=== PATIENT | female | born 1950 | race Caucasian/White ===

== ENCOUNTER 2017-11-24 07:31 | Emergency (ER) | payer MEDICARE ==
[2017-11-24 08:19] LABS: #Basophils 0.1 thou/uL (0.0-0.2); #Eosinphils 0.1 thou/uL (0.0-0.7); #Lymphocytes 1.3 thou/uL (1.20-3.40); #Monocytes 0.4 thou/uL (0.11-0.59); #Neutrophils 3.5 thou/uL (1.40-6.50); %Basophils 1.1 % (0.0-1.0); %Eosinophils 1.4 % (0.0-10.0); %Lymphocytes 23.9 % (21.0-51.0); %Monocytes 7.4 % (0.0-10.0); %Neutrophils 66.2 % (42.0-75.0); Hemoglobin 11.7 g/dL (12.0-16.0); Mean Corpuscular HGB CONC 33.2 g/dL (32.0-36.0); Mean Corpuscular Hemoglobin 32.4 pg (27.0-31.0); Mean Corpuscular Volume 97.4 fL (78.0-98.0); Mean Platelet Volume 7.1 fL (7.4-10.4); Platelet Count 190 thou/uL (130-400); RBC Distribution Width 10.9 % (11.5-14.5); Red Blood Cell (RBC) Count 3.61 mill/uL (4.20-5.40); White Blood Cell (WBC) Count 5.3 thou/uL (4.8-10.8)
[2017-11-24 08:23] LABS: Bilirubin Negative (Negative); Blood, Urine Negative (Negative); Clarity CLEAR (Clear); Glucose, Urine (Dipstick) Negative (Negative); Leukocyte Negative (Negative); Nitrite Negative (Negative); Protein, Urine (Dipstick) Negative (Neg-Trace); Specific Gravity, Urine 1.005 (1.002-1.036); pH, Urine 7.5 (5.0-9.0)
[2017-11-24 08:36] LABS: Albumin 3.4 g/dL (3.4-4.8); Alkaline Phosphatase 138 U/L (40-150); Anion Gap 13 mmol/L (10-20); BUN (Urea Nitrogen) 5 mg/dL (9.8-20.1); Bilirubin, Total 1.1 mg/dL (0.2-1.2); Calc. Creatinine Clearance 0 mL/min (70-130); Calcium 9.2 mg/dL (7.8-10.44); Carbon Dioxide 25 mmol/L (23-31); Chloride 97 mmol/L (98-107); Estimated GFR-MDRD 67; Globulin 3.2 g/dL (2.4-3.5); Glucose 96 mg/dL (80-115); Potassium 3.8 mmol/L (3.5-5.1); Protein, Total 6.6 g/dL (6.0-8.3); Sodium 131 mmol/L (136-145)
[2017-11-24 08:37] LABS: AST (SGOT) 109 U/L (5-34)
[2017-11-24 08:38] LABS: ALT (SGPT) 53 U/L (8-55)
[2017-11-24 08:47] LABS: Lipase 38 U/L (8-78)
--- NOTE | 2017-11-24 09:43 | CT ---
ABDOMEN AND PELVIC CT WITH IV CONTRAST: History: 67-year-old female with history of abdominal pain, nausea, and vomiting. FINDINGS: Visualized lung bases are unremarkable. There is some fatty change in the liver. The gallbladder, puente creas, spleen, and adrenal glands are unremarkable. No renal calculus or acute obstruction. No stephany dence of large or small bowel obstruction. Status post hysterectomy changes. No CT evidence for acute appendicitis. No abscess or abnormal fluid collection. Multilevel lumbar spine spondylosis. IMPRESSION: No significant acute process in the abdomen or pelvis. POS: [facility]
[2017-11-24] MEDS ORDERED: ISOVUE-370 76%-LOCM 1 ML ONE (13:04)
== END 2017-11-24 10:19 | disposition home or self-care (01) ==
LOC: ERS 07:31
DX: R19.7 Diarrhea, unspecified (principal); R11.2 Nausea with vomiting, unspecified; I10 Essential (primary) hypertension; E78.5 Hyperlipidemia, unspecified; D64.9 Anemia, unspecified
CPT/HCPCS: 36415; 74177; 80053; 81003; 83690; 85025; 96360; 96361

== ENCOUNTER 2018-10-25 09:54 | Emergency (ER) | payer MEDICARE ==
[2018-10-25] MEDS ORDERED: Morphine 4 MG/ML VIAL ONE (10:31)
[2018-10-25] MEDS ORDERED: Ondansetron PF 4 MG/2 ML Vial ONE (10:31)
[2018-10-25] MEDS ORDERED: Adacel (T-DAP) 0.5 ML SYRINGE ONE (10:31)
--- NOTE | 2018-10-25 11:08 | CT ---
CT BRAIN WITHOUT CONTRAST: HISTORY: Trauma, fall, unable to speak. FINDINGS: Comparison is made with the exam of 04/26/2016. Changes of chronic small-vessel ischemic disease are again seen with old lacunar infarcts in the basa l ganglia. No evidence of acute infarct, hemorrhage, midline shift, or abnormal extraaxial fluid col lection is noted. The bony calvarium is intact. The visualized paranasal sinuses and mastoid air ce lls are well aerated. IMPRESSION: No CT evidence of acute intracranial process. POS: [facility]
--- NOTE | 2018-10-25 11:09 | CT ---
CT face noncontrast HISTORY: Fall. Facial injury. FINDINGS: The mandible, globes, and zygomatic arches are intact. Degenerative changes temporomandibul ar joints. Paranasal sinuses remain well-aerated. Immediately superficial to the left parasymphyseal level of the mandible, deep within the soft tissue s is an oval heterogeneous low density fluid collection measuring up to 1.5 cm diameter. Adjacent soft tissue stranding. Small pocket of gas at the anterior-inferior margin. Calcification within the arterial structures. IMPRESSION: No acute osseous abnormalities are demonstrated. Soft tissue laceration and small hematoma left anterior lower face. Atherosclerosis.
--- NOTE | 2018-10-25 11:09 | CT ---
CT CERVICAL SPINE WITH CORONAL AND SAGITTAL REFORMATIONS: HISTORY: Fall, neck pain. FINDINGS/IMPRESSION: Multilevel degenerative changes are present. No acute fracture, subluxation, or facet malalignment i s seen. POS: [facility]USA
== END 2018-10-25 12:03 | disposition home or self-care (01) ==
LOC: ERS 09:54
DX: S01.83XA Puncture wound without foreign body of other part of head, initial encounter (principal); S01.511A Laceration without foreign body of lip, initial encounter; D64.9 Anemia, unspecified; E78.5 Hyperlipidemia, unspecified; I10 Essential (primary) hypertension; Z79.891 Long term (current) use of opiate analgesic; Z79.82 Long term (current) use of aspirin; Z79.899 Other long term (current) drug therapy
CPT/HCPCS: 12011; 70450; 70486; 72125; 90471; 90715; 96374; 96375; J2270; J2405

== ENCOUNTER 2020-01-19 11:27 | Observation (INO) | payer MEDICARE, OTHER ==
[2020-01-19] MEDS ORDERED: Iopamidol-370 76% 500 ML 1 ML ONE (13:41)
[2020-01-19 14:03] VITALS: BMI 24.1
[2020-01-19] MEDS ORDERED: HYDROcodone/Acetaminophen 10/325 mg Tablet PO PRN (14:05)
[2020-01-19] MEDS ORDERED: Ondansetron ODT 4 MG TAB PO PRN (14:05)
[2020-01-19] MEDS ORDERED: Ondansetron PF 4 MG/2 ML Vial IVP PRN (14:05)
[2020-01-19] MEDS ORDERED: Senokot 8.6 MG TAB PO PRN (14:10)
[2020-01-19 14:44] LABS: #Lymphocytes 1.1 thou/uL (1.20-3.40); #Monocytes 0.7 thou/uL (0.11-0.59); #Neutrophils 4.2 thou/uL (1.40-6.50); %Basophils 0.5 % (0.0-1.0); %Eosinophils 0.5 % (0.0-10.0); %Lymphocytes 18.4 % (21.0-51.0); %Neutrophils 68.6 % (42.0-75.0); Hemoglobin 9.3 g/dL (12.0-16.0); Mean Corpuscular HGB CONC 34.4 g/dL (32.0-36.0); Mean Corpuscular Hemoglobin 34.9 pg (27.0-31.0); Mean Platelet Volume 6.3 fL (7.4-10.4); Platelet Count 261 thou/uL (130-400); RBC Distribution Width 10.8 % (11.5-14.5); Red Blood Cell (RBC) Count 2.65 mill/uL (4.20-5.40); White Blood Cell (WBC) Count 6.1 thou/uL (4.8-10.8)
[2020-01-19] MEDS ORDERED: Enoxaparin Sodium 40 MG/0.4 ML SYRINGE SC SCH (14:45)
[2020-01-19] MEDS: Morphine 2 MG/ML VIAL SLOW IVP PRN ×2 (14:59→20:16)
[2020-01-19 15:04] LABS: Anion Gap 14 mmol/L (10-20); BUN (Urea Nitrogen) 10 mg/dL (9.8-20.1); Calc. Creatinine Clearance 59 mL/min (70-130); Carbon Dioxide 24 mmol/L (23-31); Chloride 93 mmol/L (98-107); Estimated GFR-MDRD 81; Glucose 117 mg/dL (80-115); Potassium 3.2 mmol/L (3.5-5.1); Sodium 128 mmol/L (136-145)
[2020-01-19] MEDS: Diltiazem 125 MG in Sodium Chloride 0.9% 100 ML IVPB SCH (15:05)
--- NOTE | 2020-01-19 15:06 | PDOC.HHP ---
Hospitalist HPI - History of Present Illness Transfer for atrial fibrillation History of Present Illness: This patient is a 6-year-old female with no history of cardiac disease. Patient had a mechanical fall several days ago on her garage and fractured her proximal humerus. Patient was seen in the emergency department at this facility. She was ultimately discharged home to have outpatient follow-up with orthopedic surgery. Patient did not desire to pursue surgery if at all possible. She had pain that she could not tolerate and was ultimately admitted to the [facility]. After a brief attempt to manage her without surgery the patient underwent ORIF with heather placement on 01/18/2020. Patient reports her pain was substantially improved following the surgery. This morning the patient was noted to be in atrial fibrillation with a rapid ventricular response. She was completely asymptomatic. She denied any chest pain, palpitations, shortness of breath. With the limitations of that facility the patient was subsequently transferred here for further management. Currently the patient continues to be completely asymptomatic. Hospitalist ROS - Review of Systems Constitutional: denies: fever, chills Respiratory: denies: cough, shortness of breath Cardiovascular: denies: chest pain, palpitations, light headedness Gastrointestinal: denies: nausea, vomiting Genitourinary: denies: dysuria, frequency All other systems reviewed; all pertinent +/- noted in HPI/Subj Hospitalist History - Past Medical History Source: patient Cardiac: reports: HTN Gastrointestinal: reports: Irritable bowel disease (Diarrhea predominant) Musculoskeletal: reports: Osteoarthritis - Past Surgical History Past Surgical History: reports: Breast Biopsy (Left), Hysterectomy, Tonsillectomy, Other (Nephrectomy, sinus surgery) - Family History Family History: reports: hypertension (Mother, father and children) - Social History Smoking Status: Never smoker Alcohol: reports: Occassional Drugs: reports: none Living Situation: With Family Activity level: independent ambulation Other Social History: Full code - Exam General Appearance: NAD, awake alert Eye: PERRL, anicteric sclera ENT: normocephalic atraumatic, no oropharyngeal lesions, moist mucosa Neck: supple, symmetric, no JVD, no thyromegaly, no lymphadenopathy, no carotid bruit Heart: irregular Heart - other findings: Tachycardia Respiratory: CTAB, no wheezes, no rales, no ronchi, normal chest expansion, no tachypnea, normal percussion Gastrointestinal: soft, non-tender, non-distended, normal bowel sounds, no palpable masses, no hepatomegaly, no splenomegaly, no bruit Extremities: no cyanosis, no clubbing Extremities - other findings: Artery with postop bandage. There is generalized edema and ecchymoses. Skin: normal turgor, no lesions, no rashes Neurological: cranial nerve grossly intact, normal sensation to touch, no weakness, no focal deficits, no new deficit Musculoskeletal: normal tone, normal strength, no muscle wasting Psychiatric: normal affect, normal behavior, A&O x 3 Hospitalist Results - Labs Result Diagrams: 01/19/20 14:35 Lab results: WBC 6.1 thou/uL (4.8-10.8) 01/19/20 14:35 Hgb 9.3 g/dL (12.0-16.0) L 01/19/20 14:35 Hct 26.9 % (36.0-47.0) L 01/19/20 14:35 MCV 101.0 fL (78.0-98.0) H 01/19/20 14:35 Plt Count 261 thou/uL (130-400) 01/19/20 14:35 Neutrophils % 68.6 % (42.0-75.0) 01/19/20 14:35 - EKG Interpretation EKG: A. fib with RVR. Monitor revealing rate in the 150s. Hospitalist H&P A/P - Problem (1) Atrial fibrillation with RVR Code(s): I48.91 - UNSPECIFIED ATRIAL FIBRILLATION Status: Acute (2) Hypertension Code(s): I10 - ESSENTIAL (PRIMARY) HYPERTENSION Status: Acute (3) Fracture of right humerus Code(s): S42.301A - UNSP FRACTURE OF SHAFT OF HUMERUS, RIGHT ARM, INIT Status : Acute (4) Osteoarthritis Code(s): M19.90 - UNSPECIFIED OSTEOARTHRITIS, UNSPECIFIED SITE Status: Acute - Plan Plan: Atrial fibrillation with rapid ventricular response: Patient is admitted to the telemetry unit. IV has been placed. We will initiate a Cardizem bolus of 20 mg. Initiate a Cardizem drip at 5 mg an hour and will titrate as needed. Lovenox 1 mg/kg now and twice daily. We will check a series of troponins and thyroid panel. BMP and CBC. Cardiology consult. Echocardiogram. CT Maude of the chest to rule out PE. Right humerus fracture: Status post surgical intervention on 01/18/2020. Obtain x-ray. PT consult. Continue PRN pain management. Hypertension: We will monitor her blood pressure for now given her tachycardia. She will be on the Cardizem drip. If her blood pressure justifies it we will resume her AKI inhibitor.
[2020-01-19] MEDS: Sodium Chloride 0.9% 1,000 ML IV SCH (15:09)
[2020-01-19] MEDS ORDERED: Potassium Chloride 20 MEQ TAB PO SCH (15:30)
--- NOTE | 2020-01-19 16:00 | CT ---
EXAM: CTA of the chest HISTORY: Chest pain and atrial fibrillation with rapid ventricular response COMPARISON: None TECHNIQUE: Multiple contiguous axial images were obtained a CTA of the chest with contrast per pulmon jared embolism protocol. 3-D oblique MIP reformats and direct coronal reformats were performed. FINDINGS: HEART: Normal in size without focal cardiac abnormality. PULMONARY ARTERIES: Normal in caliber without filling defects to suggest pulmonary emboli. MEDIASTINUM: No hilar or mediastinal lymphadenopathy. LUNGS: No focal infiltrates or masses. PLEURAL SPACE: No pleural effusion or pneumothorax. Platelike atelectasis is seen along the right nicola or and minor fissure CHEST WALL SOFT TISSUES: Unremarkable VISUALIZED OSSEOUS STRUCTURES: Degenerative changes and vertebroplasty cement are seen in the spine. VISUALIZED SUBDIAPHRAGMATIC STRUCTURES: Unremarkable IMPRESSION: 1. No evidence of pulmonary thromboembolism 2. Right atelectasis
[2020-01-19] MEDS ORDERED: Amiodarone 450 MG in Dextrose 5% in Water 250 ML IVPB SCH (16:15)
[2020-01-19 17:12] LABS: Troponin I 0.027 ng/mL (< 0.028)
[2020-01-19 17:26] LABS: Thyroid Stimulating Hormone 0.2032 uIU/mL (0.35-4.94)
--- NOTE | 2020-01-19 18:51 | RAD ---
Right humerus 2 views HISTORY: Fracture. FINDINGS: Medullary heather traversing one half the length of the upper half of the humerus transfixes th e comminuted neck fracture. No jorge-hardware lucency. Alignment is anatomic. Overlying skin charlotte are in place. IMPRESSION : Internal orthopedic fixation proximal left humeral fracture.
[2020-01-19] MEDS: Famotidine 20 MG TAB PO SCH (20:15)
[2020-01-19] MEDS: Enoxaparin Sodium 60 MG/0.6 ML SYRINGE SC SCH (20:15)
[2020-01-19 20:36] LABS: Free T4 (Free Thyroxine) 1.13 ng/dL (0.70-1.48)
[2020-01-19 21:47] LABS: Troponin I 0.027 ng/mL (< 0.028)
[2020-01-20 04:32] LABS: #Lymphocytes 1.2 thou/uL (1.20-3.40); #Monocytes 0.8 thou/uL (0.11-0.59); #Neutrophils 5.1 thou/uL (1.40-6.50); %Basophils 0.6 % (0.0-1.0); %Eosinophils 0.4 % (0.0-10.0); %Lymphocytes 16.3 % (21.0-51.0); %Monocytes 10.7 % (0.0-10.0); Hemoglobin 8.4 g/dL (12.0-16.0); Mean Platelet Volume 6.7 fL (7.4-10.4); Platelet Count 266 thou/uL (130-400); RBC Distribution Width 10.9 % (11.5-14.5); Red Blood Cell (RBC) Count 2.39 mill/uL (4.20-5.40); White Blood Cell (WBC) Count 7.1 thou/uL (4.8-10.8)
[2020-01-20 04:50] LABS: Anion Gap 16 mmol/L (10-20); BUN (Urea Nitrogen) 9 mg/dL (9.8-20.1); Calc. Creatinine Clearance 63 mL/min (70-130); Calcium 8.9 mg/dL (7.8-10.44); Carbon Dioxide 21 mmol/L (23-31); Chloride 96 mmol/L (98-107); Estimated GFR-MDRD 89; Glucose 93 mg/dL (80-115); Potassium 3.9 mmol/L (3.5-5.1); Sodium 129 mmol/L (136-145)
[2020-01-20 04:56] LABS: Troponin I 0.025 ng/mL (< 0.028)
[2020-01-20] MEDS: Sodium Chloride 0.9% 1,000 ML IV SCH (05:07)
--- NOTE | 2020-01-20 07:48 | CON ---
DATE OF CONSULTATION: 01/19/2020 REASON FOR CONSULTATION: AFib with RVR. HISTORY OF PRESENT ILLNESS: Ms. Ordaz is a very pleasant 69-year-old white female who comes to the hospital for tachycardia. She had a fall and broke her right humerus. She was discharged with pain control and planned to see outpatient Orthopedic Surgery. Eventually, she went and had surgery at the [facility] with Dr. Zamora's group. After the surgery, which was done yesterday, was admitted to the hospital and observed overnight. This morning, she was a lot more tachycardic, so she was transferred over to the [facility] and Cardiology is being consulted as she is currently in AFib with RVR. She underwent ORIF with heather placement yesterday. She is still battling a lot of pain on her right shoulder that goes to the rest of her chest. She admits to mild palpitations, but no chest pain, no shortness of breath. PAST MEDICAL HISTORY: 1. Hypertension. 2. Irritable bowel disease. 3. Osteoarthritis. SURGICAL HISTORY: 1. Left breast biopsy. 2. Hysterectomy. 3. Tonsillectomy. 4. Nephrectomy. 5. Sinus surgery. 6. Eye surgery. FAMILY HISTORY: Hypertension. SOCIAL HISTORY: No alcohol, tobacco, or drugs. REVIEW OF SYSTEMS: A 12-point review of systems was done and was found to be negative other than stated in the history of present illness. OUTPATIENT MEDICATIONS: 1. Omeprazole 20 mg a day. 2. Losartan/hydrochlorothiazide 50/12.5 a day. 3. Calcium with vitamin D. 4. Zyrtec p.r.n. 5. Tylenol No. 3 p.r.n. 6. CoQ10. 7. Aspirin 81 a day. 8. Multivitamins. ALLERGIES: NO KNOWN DRUG ALLERGIES. PHYSICAL EXAMINATION: VITAL SIGNS: Temperature 97.8, pulse is 153, respiratory rate 16, saturations 98% on room air, blood pressure 103/80. GENERAL: Awake, alert, oriented x3, in no distress. HEENT: Normocephalic, atraumatic. NECK: Supple. LUNGS: Clear. CARDIOVASCULAR: S1 and S2. No S3 or S4. Tachycardic in the 140s to 160s. ABDOMEN: Soft. Positive bowel sounds. EXTREMITIES: No edema. SKIN: Warm and dry. LABORATORY DATA: Laboratory work was reviewed. CBC with a white count of 6, hemoglobin 9.3, hematocrit of 26, platelet count of 261. Chemistry with a sodium 128, potassium was 3.2, chloride of 93, normal BUN and creatinine. GFR of 81. CT of the chest showed no evidence of pulmonary embolism. ASSESSMENT: 1. Atrial fibrillation with rapid ventricular response. 2. Postoperative state, status post heather placement on the right humerus after a fall and a fracture. 3. Hypokalemia. PLAN: 1. We will plan on rhythm control. We will start her on amiodarone drip to try to slow her down. Hopefully, she will convert on her own. 2. Would recommend replacing potassium up to closer to 4. 3. Echocardiogram to be done. 4. If she has not converted in the next 48 hours, she may be a candidate for MAHENDRA cardioversion. 5. CHADS2-VASc score of 3 for female, age above 65, and hypertension, so she would be a candidate for full anticoagulation. We will start Eliquis 5 mg twice a day as long as safe from the surgical perspective. Thank you for letting us participate in the care of your patient. We will follow. Job ID: [id number]
[2020-01-20] MEDS: Enoxaparin Sodium 60 MG/0.6 ML SYRINGE SC SCH (08:30)
[2020-01-20] MEDS: Famotidine 20 MG TAB PO SCH (08:30)
[2020-01-20] MEDS ORDERED: Folic Acid 1 MG TAB PO SCH (09:00)
[2020-01-20] MEDS ORDERED: Aspirin 81 mg Enteric Coated Tablet PO SCH (09:00)
[2020-01-20] MEDS ORDERED: Thiamine 100 MG TAB PO SCH (09:00)
[2020-01-20] MEDS: Diltiazem 125 MG in Sodium Chloride 0.9% 100 ML IVPB SCH (11:50)
[2020-01-20 12:12] VITALS: BP 150/102; TEMP 98
--- NOTE | 2020-01-20 13:20 | PDOC.CPN ---
- Subjective Date: 01/20/20 Time: 13:18 Interval history: She converted into sinus rhythm with diltiazem and replacement of her potassium. - Review of Systems General: denies: fever/chills, weight/appetite/sleep changes, night sweats, fatigue Respiratory: denies: cough, congestion, shortness of breath, exercise intolerance Cardiovascular: denies: chest pain, palpitation, edema, paroxysmal nocturnal dyspnea, orthopnea Gastrointestinal: denies: nausea, vomiting, diarrhea, constipation, abd pain, GI bleeding Musculoskeletal: denies: pain, tenderness, stiffness, swelling, arthritis/ arthralgias Neurological: denies: numbness, syncope, seizure, weakness - Objective Allergies/Adverse Reactions: Allergies Allergy/AdvReac Type Severity Reaction Status Date / Time No Known Allergies Allergy Verified 01/19/20 14:02 Visit Medications: Current Medications Hydrocodone Bitart/Acetaminophen (Gary 10/325) 1 tab PO Q4H PRN PRN Reason: Moderate Pain (4-6) Last Admin: 01/19/20 17:11 Dose: 1 tab Aspirin (Ecotrin) 81 mg PO DAILY [facility] Last Admin: 01/20/20 08:31 Dose: 81 mg Enoxaparin Sodium (Lovenox) 50 mg SC 0900,2100 [facility] Last Admin: 01/20/20 08:30 Dose: 50 mg Famotidine (Pepcid) 20 mg PO BID [facility] Last Admin: 01/20/20 08:30 Dose: 20 mg Folic Acid (Folvite) 1 mg PO DAILY [facility] Last Admin: 01/20/20 08:30 Dose: 1 mg Sodium Chloride (Normal Saline 0.9%) 1,000 mls @ 75 mls/hr IV .[id number] [facility] Last Admin: 01/20/20 05:07 Dose: 1,000 mls Diltiazem HCl 125 mg/ Sodium (Chloride) 125 mls @ 5 mls/hr IVPB INF [facility]; Protocol Last Admin: 01/20/20 11:50 Dose: 125 mls Morphine Sulfate (Morphine) 2 mg SLOW IVP Q4H PRN PRN Reason: Moderate to Severe Pain (6-10) Last Admin: 01/19/20 20:16 Dose: 2 mg Ondansetron HCl (Zofran Odt) 4 mg PO Q6H PRN PRN Reason: Nausea/Vomiting Ondansetron HCl (Zofran) 4 mg IVP Q6H PRN PRN Reason: Nausea/Vomiting Pneumococcal 13-Valent Conj Vacc (Prevnar) 0.5 ml IM .ONCE ONE Stop: 01/20/20 14:16 Senna (Senokot) 1 tab PO HSPRN PRN PRN Reason: Constipation Thiamine HCl (Thiamine) 100 mg PO DAILY [facility] Last Admin: 01/20/20 08:30 Dose: 100 mg Vital Signs & Weight: Vital Signs Temp Pulse Resp BP Pulse Ox 01/20/20 11:20 98.0 F 88 18 150/102 H 99 01/20/20 08:20 98.4 F 98 16 168/77 H 97 01/20/20 04:00 97.9 F 83 20 173/78 H 97 Weight 111 lb 8 oz - Physical Exam General: alert & oriented x3 HEENT: mucus membranes moist Neck: supple neck Cardiac: regular rate and rhythm Lungs: normal breath sounds Neuro: grossly intact Abdomen: active bowel sounds Extremities: no edema Skin: clear Musculoskeletal: no pain - Labs Result Diagrams: 01/20/20 03:44 01/20/20 03:44 Troponin/CKMB Troponin I 0.025 ng/mL (< 0.028) 01/20/20 03:44 - Telemetry Sinus rhythms and dysrhythmias: sinus rhythm - Assessment/Plan Assessment/Plan: 1. New onset Afib 2. Hypokalemia resolved. 3. S/P shoulder repair. PLAN: - Would switch to PO diltiazem and start Eliquis in 3 days for stroke prophylaxis. - Will have her follow up in 1 month. - Will sign off. Please call with any questions.
--- NOTE | 2020-01-20 13:31 | PDOC.EVN ---
Event Note - Event Note Event Note: Patient found in [facility] aware. No significant issues identified. Will Rx Tramadol at discharge.
[2020-01-20 13:53] LABS: SARS-CoV-2 MS2 Positive; SARS-CoV-2 N Gene Negative; SARS-CoV-2 S Gene Negative; SARS-CoV-2 by NAA Not Detected (NotDetected); SARS-CoV-2 orf1ab Negative
[2020-01-20] MEDS ORDERED: Prevnar 13-Val Conj/PF 0.5 ML SYRINGE IM ONE (14:15)
--- NOTE | 2020-01-20 15:44 | DIS ---
DATE OF ADMISSION: 01/19/2020 DATE OF DISCHARGE: 01/20/2020 DISCHARGE DIAGNOSES: 1. Atrial fibrillation with rapid ventricular response. 2. Right humerus fracture, status post surgical intervention with heather placement. 3. Hypertension. 4. Mild hyponatremia. 5. Mild macrocytic anemia. HISTORY: The patient is a 69-year-old female, who had a fall in her garage resulting in a right humerus fracture. The patient was seen in the emergency department and was given pain medications and subsequently referred to outpatient followup with Orthopedic Surgery. The patient ultimately presented back to the [facility] due to pain-related issues and was admitted there. She did undergo surgery with fixation of the right humerus fracture with intramedullary heather placement. Subsequently, the patient's pain did improve somewhat, but she had onset of atrial fibrillation with rapid ventricular response. She was subsequently transferred to this facility for further care and management. The patient remained asymptomatic. HOSPITAL COURSE: The patient was admitted to this facility, started on a diltiazem drip as her heart rate was in the 150s. She was given Lovenox at a therapeutic dose. She subsequently did spontaneously convert to sinus rhythm and maintained fairly good rate control. With that, she was felt stable for discharge both by myself and by Cardiology to have outpatient followup. The patient's labs did note mild hyponatremia with sodium of 128. Her previous lab values indicated sodium of 133 and 131 going back to 2017 and 2018. She did have B12 and folate levels checked, which were normal. TSH was 0.2 with a free T4 of 1.13. Troponins remained negative. Echocardiogram was ordered and results are still pending at the time of discharge. The patient did have some elevation of her blood pressures while in the emergency department while awake. PHYSICAL EXAMINATION: VITAL SIGNS: On the day of discharge, temperature is 98.4, pulse 98, respirations 16, O2 saturation 97% on room air, and blood pressure 168/77. GENERAL APPEARANCE: Age-appropriate female, in no distress. HEART: Regular. LUNGS: Clear. Right upper extremity had postop surgical dressing. EXTREMITIES: Had no edema, otherwise. DISPOSITION: The patient is discharged to home in stable condition. DIET: She is to be on a heart-healthy diet. ACTIVITY: Her activity level is as tolerated. She is to keep her right upper extremity in a simple sling. MEDICATIONS: 1. Tylenol No. 3 p.r.n. 2. Tramadol p.r.n. 3. Calcium with vitamin D one daily. 4. Zyrtec 10 mg daily p.r.n. 5. Losartan/hydrochlorothiazide 50/12.5 one p.o. daily. 6. Omeprazole 20 mg daily. 7. Eliquis 60 mg p.o. b.i.d. to start on 01/23/2020. 8. Diltiazem 30 mg p.o. b.i.d. FOLLOWUP: The patient is to follow up with her PCP, Dr. Fidencio Lynch and with Dr. Andrew Fonseca and with Dr. Carreno. She can return to this facility anytime she has the need to do so. TIME SPENT: Time spent in discharge activities greater than 30 minutes. Job ID: [id number]
--- NOTE | 2020-01-23 06:33 | PQF ---
CLINICAL DOCUMENTATION CLARIFICATION FORM: Dear :Lester Rolon Date / Time: 01/23/2020 06:32 Please exercise your independent, professional judgment in responding to the clarification form. Clinical indicators are provided on the bottom of this form for your review Please check appropriate box(es): [ ] Afib as a complication of recent ORIF of humerus [ ] Afib not a complication of recent ORIF of humerus [ ] Other diagnosis [ x ] Unable to determine Physician Signature: Date/Time: For continuity of documentation, please document condition throughout progress notes and discharge summary. Thank You To be completed by CDI/Coding staff for physician review: Present Clinical Indicators - Signs / Symptoms / Labs Results and Location in Medical Record [x] Transfer for Afib HP 01/18 [x] patient underwent ORIF on 01/17 HP 01/18 [x] patient was noted to be in afib with a rapid ventricular response HP 01/18 [x] Pulse: 01/1825=927,124,102 Vital Signs 01/18 Present Risk Factors Results and Location in Medical Record [x] 69 years old HP 01/18 [x] HTN HP 01/18 [x] s/p ORIF HP 01/18 Present Treatments Results and Location in Medical Record [x] IVF HP 01/18 [x] Echocardiogram Collected 01/19 [x] Cardiology Consult Consult 01/18 [x] Cardizem 125mg IV AUG 06 [x] Amiodarone 450mg IV AUG 06 CDS/Cutter Apprentice Hand Signature: Pradeep Kerr Phone #: ext [phone] Date/Time: 01/23/2020 06:32 This is a permanent part of the Medical Record [facility]
== END 2020-01-20 15:20 | disposition home or self-care (01) ==
LOC: INTOOBSV 13:33 → 2NO 13:33
PROVIDERS: ADMIT Internal Medicine; ATTEND Internal Medicine
DX: I48.91 Unspecified atrial fibrillation (principal); S42.201D Unspecified fracture of upper end of right humerus, subsequent encounter for fracture with routine healing; I10 Essential (primary) hypertension; E87.1 Hypo-osmolality and hyponatremia; D53.9 Nutritional anemia, unspecified; M19.90 Unspecified osteoarthritis, unspecified site; K58.0 Irritable bowel syndrome with diarrhea; J98.11 Atelectasis; E87.6 Hypokalemia; Z79.82 Long term (current) use of aspirin; Z79.899 Other long term (current) drug therapy; Z90.5 Acquired absence of kidney; Z20.828 Contact with and (suspected) exposure to other viral communicable diseases; W19.XXXD Unspecified fall, subsequent encounter
CPT/HCPCS: 71275; 73060; 80048 ×2; 82607; 82746; 84439; 84443; 84484 ×3; 85025 ×2; 93306; 97116; 97139 ×2; J2270; U0003; 36415; 87635; J1650; J3490; Q9967

== ENCOUNTER 2020-06-07 06:38 | Outpatient (CLI) | payer MEDICARE ==
[2020-06-07 17:02] LABS: SARS-CoV-2 MS2 Positive; SARS-CoV-2 N Gene Negative; SARS-CoV-2 S Gene Negative; SARS-CoV-2 by NAA Not Detected (NotDetected); SARS-CoV-2 orf1ab Negative
== END 2020-06-07 06:39 | disposition home or self-care (01) ==
LOC: LABBT 06:38
PROVIDERS: ATTEND Family Medicine
DX: Z01.812 Encounter for preprocedural laboratory examination (principal); H35.342 Macular cyst, hole, or pseudohole, left eye; Z20.822 Contact with and (suspected) exposure to COVID-19
CPT/HCPCS: 87635; U0003

== ENCOUNTER 2020-06-12 07:10 | Day surgery (SDC) | payer MEDICARE ==
[2020-06-11 10:46] VITALS: BMI 19.6
[~2020-06-12 07:10] MED LIST: EPINEPHrine 0.3 MG in Ophthalmic Irrigation Solution 500 ML IRR SCH; Fentanyl 100 MCG/2 ML VIAL ONE; Midazolam HCl 2 mg/2 ml Vial ONE; PROPOFOL 20 ML ONE
[2020-06-12] MEDS ORDERED: Phenylephrine 2.5% Ophth Soln 5 ML BOT ONE (07:13)
[2020-06-12] MEDS ORDERED: Cyclopentolate HCl 1% 5 ML BOT ONE (07:13)
[2020-06-12] MEDS ORDERED: hydrALAZINE 20 MG/ML VIAL SLOW IVP PRN (09:56)
[2020-06-12] MEDS ORDERED: Famotidine/PF 20 mg/2ml Vial ONE (09:58)
[2020-06-12] MEDS ORDERED: hydrALAZINE 20 MG/ML VIAL ONE (09:59)
--- NOTE | 2020-06-12 10:52 | OP ---
DATE OF PROCEDURE: 06/12/2020 PRINCIPAL PREOPERATIVE DIAGNOSIS: Macular hole, left eye. POSTOPERATIVE DIAGNOSIS: Macular hole, left eye. PROCEDURES PERFORMED: 1. 25-gauge pars plana vitrectomy platform and a 25-gauge pars plana vitrectomy, left eye. 2. Macular hole repair, left eye. 3. 15% SF6 fill, left eye. ESTIMATED BLOOD LOSS: None. SPECIMENS REMOVED: None. COMPLICATIONS: None. ANESTHESIA: MAC with conversion to LMA with subtenon's block. SUMMARY OF OPERATION: The patient was identified in the preoperative holding area, where the correct eye being the left eye was marked for surgery. The patient was taken to the operating room, where MAC anesthesia was induced. The left eye was prepped and draped in usual sterile ophthalmic fashion for surgery. A wire clip lid speculum was placed. At this point, the patient was noted to be significantly irritable and the decision was made to be convert to general anesthesia. The LMA was placed. An inferonasal conjunctival peritomy was fashioned with Hemalatha scissors for administration of subtenon's block. The block consisted of 1:1 ratio of 4% lidocaine and 0.75% Marcaine. A total of 5 mL was administered. A standard 25-gauge pars plana vitrectomy platform was fashioned with trocars placed approximately 3.5 mm from the limbus. The infusion was noted to be within the vitreous cavity prior to being turned on to an infusion pressure of 30 mmHg. The light pipe and microvitrector were introduced in the eye under visualization of the BIOM viewing system. A careful core vitrectomy was performed followed by injection of Kenalog. Subsequently, a gentle posterior vitreous detachment was created followed by completion of peripheral shave vitrectomy. Following vitrectomy, ICG dye was used to stain the internal limiting membrane. Using the Cheko ILM forceps, the internal limiting membrane was peeled in a circumferential fashion about the fovea. The peel extended approximately 2 disk diameters in radius circumferentially. Following completion of peeling, the microvitrector was introduced in the eye to remove the residual vitreous debris. A 360-degree scleral depressed exam of the periphery revealed no defects. An air fluid exchange was performed followed by an air-gas exchange with 15% SF6. The cannulas were sequentially removed and all sclerotomies were noted to be gas tight. Subconjunctival Ancef and Kenalog were injected. The wire-clip and lid speculum were removed followed by application of TobraDex ophthalmic ointment and a light patch and shield. The patient tolerated the procedure well and was taken to outpatient recovery in good condition. Job ID: [id number]
== END 2020-06-12 11:35 | disposition home or self-care (01) ==
LOC: SDC 07:10
PROVIDERS: ATTEND Ophthalmology Retina Specialist
PROC: 08T53ZZ Resection of Left Vitreous, Percutaneous Approach (ICD-10-PCS; principal; 2020-06-12)
PROC: 08NF3ZZ Release Left Retina, Percutaneous Approach (ICD-10-PCS; 2020-06-12)
DX: H35.342 Macular cyst, hole, or pseudohole, left eye (principal); Z79.82 Long term (current) use of aspirin; Z79.899 Other long term (current) drug therapy
CPT/HCPCS: 67025; J0171; J0360; J2250; J2704; J3010; S0028

== ENCOUNTER 2020-12-05 10:13 | Inpatient (IN) | payer MEDICARE ==
[2020-12-05 10:54] LABS: #Eosinphils 0.1 thou/uL (0.0-0.7); #Lymphocytes 1.2 thou/uL (1.20-3.40); #Monocytes 0.7 thou/uL (0.11-0.59); #Neutrophils 5.9 thou/uL (1.40-6.50); %Basophils 0.3 % (0.0-1.0); %Eosinophils 0.7 % (0.0-10.0); %Lymphocytes 15.4 % (21.0-51.0); %Monocytes 9.3 % (0.0-10.0); %Neutrophils 74.4 % (42.0-75.0); Hemoglobin 12.9 g/dL (12.0-16.0); Mean Corpuscular HGB CONC 34.7 g/dL (32.0-36.0); Mean Corpuscular Hemoglobin 34.1 pg (27.0-31.0); Mean Corpuscular Volume 98.4 fL (78.0-98.0); Mean Platelet Volume 6.8 fL (7.4-10.4); Platelet Count 252 thou/uL (130-400); RBC Distribution Width 11.4 % (11.5-14.5); Red Blood Cell (RBC) Count 3.77 mill/uL (4.20-5.40); White Blood Cell (WBC) Count 7.9 thou/uL (4.8-10.8)
[2020-12-05 11:21] LABS: ALT (SGPT) 37 U/L (8-55); AST (SGOT) 33 U/L (5-34); Albumin 4.6 g/dL (3.4-4.8); Alkaline Phosphatase 82 U/L (40-110); Anion Gap 19 mmol/L (10-20); BUN (Urea Nitrogen) 19 mg/dL (9.8-20.1); Bilirubin, Total 0.8 mg/dL (0.2-1.2); Calc. Creatinine Clearance 0 mL/min (70-130); Calcium 9.9 mg/dL (7.8-10.44); Carbon Dioxide 18 mmol/L (23-31); Chloride 92 mmol/L (98-107); Globulin 2.8 g/dL (2.4-3.5); Glucose 120 mg/dL (83-110); Potassium 3.1 mmol/L (3.5-5.1); Protein, Total 7.4 g/dL (5.8-8.1); Sodium 126 mmol/L (136-145)
[2020-12-05 12:13] LABS: Bilirubin Negative (Negative); Blood, Urine Negative (Negative); Clarity Clear (Clear); Glucose, Urine (Dipstick) Normal (Negative); Ketone, Urine Negative (Negative); Leukocyte Negative Leu/uL (Negative); Nitrite Negative (Negative); Protein, Urine (Dipstick) 20 mg/dL (Neg-Trace); Specific Gravity, Urine 1.024 (1.002-1.036); Urobilinogen Normal mg/dL (Less than 2)
[2020-12-05] MEDS ORDERED: Acetaminophen 325 MG TAB PO PRN (13:39)
[2020-12-05] MEDS ORDERED: Calcium Carbonate 500 MG ChewTAB PO PRN (13:39)
[2020-12-05] MEDS ORDERED: Acetaminophen/Codeine 30-300mg Tablet PO PRN (13:39)
[2020-12-05] MEDS ORDERED: Guaifenesin DM 100-10/5 ML UDCUP PO PRN (13:39)
[2020-12-05] MEDS ORDERED: Ondansetron PF 4 MG/2 ML Vial IVP PRN (13:39)
[2020-12-05] MEDS ORDERED: Ondansetron PF 4 MG/2 ML Vial ONE (15:14)
[2020-12-05 16:18] VITALS: BMI 21.2
[2020-12-05] MEDS: Sodium Chloride 0.9% 1,000 ML IV SCH (16:39)
[2020-12-05] MEDS: Potassium Chloride 20 MEQ TAB PO SCH ×2 (16:40→20:45)
[2020-12-05] MEDS ORDERED: Cosyntropin 250 MCG VIAL SLOW IVP SCH (20:30)
[2020-12-06] MEDS: Sodium Chloride 0.9% 1,000 ML IV SCH ×2 (00:51→02:46)
[2020-12-06] MEDS: Potassium Chloride 20 MEQ TAB PO SCH (02:44)
[2020-12-06 06:21] LABS: #Eosinphils 0.1 thou/uL (0.0-0.7); #Lymphocytes 1.3 thou/uL (1.20-3.40); #Monocytes 0.6 thou/uL (0.11-0.59); #Neutrophils 3.7 thou/uL (1.40-6.50); %Basophils 0.6 % (0.0-1.0); %Eosinophils 1.5 % (0.0-10.0); %Lymphocytes 22.4 % (21.0-51.0); %Monocytes 9.8 % (0.0-10.0); %Neutrophils 65.7 % (42.0-75.0); Hemoglobin 10.8 g/dL (12.0-16.0); Mean Corpuscular HGB CONC 35.7 g/dL (32.0-36.0); Mean Corpuscular Hemoglobin 35.3 pg (27.0-31.0); Mean Corpuscular Volume 98.8 fL (78.0-98.0); Mean Platelet Volume 6.8 fL (7.4-10.4); Platelet Count 170 thou/uL (130-400); RBC Distribution Width 11.6 % (11.5-14.5); Red Blood Cell (RBC) Count 3.05 mill/uL (4.20-5.40); White Blood Cell (WBC) Count 5.7 thou/uL (4.8-10.8)
[2020-12-06 06:34] LABS: Phosphorus 2.4 mg/dL (2.3-4.7)
[2020-12-06 06:37] LABS: Anion Gap 12 mmol/L (10-20); BUN (Urea Nitrogen) 15 mg/dL (9.8-20.1); Calc. Creatinine Clearance 39 mL/min (70-130); Calcium 8.9 mg/dL (7.8-10.44); Carbon Dioxide 15 mmol/L (23-31); Chloride 108 mmol/L (98-107); Glucose 94 mg/dL (83-110); Potassium 4.4 mmol/L (3.5-5.1); Sodium 131 mmol/L (136-145)
[2020-12-06] MEDS ORDERED: Vit A,C & E/Lutein/Minerals Tablet PO SCH (09:00)
[2020-12-06] MEDS ORDERED: Aspirin Chewable 81 MG TAB PO SCH (09:00)
[2020-12-06] MEDS ORDERED: Enoxaparin Sodium 40 MG/0.4 ML SYRINGE SC SCH (09:00)
[2020-12-06] MEDS ORDERED: Diphenoxylate HCl/Atropine Tablet PO PRN (10:56)
[2020-12-06] MEDS ORDERED: Diphenoxylate HCl/Atropine Tablet PO SCH (11:00)
[2020-12-06] MEDS ORDERED: Losartan 25 MG TAB PO SCH (12:47)
[2020-12-06 16:32] VITALS: BP 194/90; TEMP 98.7
[2020-12-06] MEDS ORDERED: Cholestyramine/Aspartame 4 gm Packet PO SCH (22:00)
[2020-12-07] MEDS ORDERED: Losartan 25 MG TAB PO SCH (09:00)
== END 2020-12-07 05:15 | disposition home or self-care (01) | DRG 392 ==
LOC: ERS 10:13 → ERHOLD 12:46 → ONC 16:06
PROVIDERS: ADMIT Internal Medicine; ATTEND Internal Medicine
DX: A08.4 Viral intestinal infection, unspecified (principal); N17.9 Acute kidney failure, unspecified; E87.1 Hypo-osmolality and hyponatremia; E87.2 Acidosis; I10 Essential (primary) hypertension; M19.90 Unspecified osteoarthritis, unspecified site; D64.9 Anemia, unspecified; I48.91 Unspecified atrial fibrillation; E78.5 Hyperlipidemia, unspecified; E87.6 Hypokalemia; E86.0 Dehydration; Z79.82 Long term (current) use of aspirin; Z79.899 Other long term (current) drug therapy; Z90.710 Acquired absence of both cervix and uterus
CPT/HCPCS: 36415; 71046; 74018; 80048; 80053; 80400; 81003; 83735; 84100; 85025; 87045; 87046; 87081; 87177; 87324; 87427; 87449; 87798; 96374; J0834; J2405

== ENCOUNTER 2020-12-14 07:43 | Inpatient (IN) | payer MEDICARE ==
[2020-12-14] MEDS ORDERED: Ondansetron PF 4 MG/2 ML Vial ONE (08:07)
[2020-12-14] MEDS ORDERED: Lorazepam 2 MG/ML VIAL ONE ×2 (08:32→09:23)
[2020-12-14 08:47] LABS: #Eosinphils 0.1 thou/uL (0.0-0.7); #Lymphocytes 1.7 thou/uL (1.20-3.40); #Monocytes 0.8 thou/uL (0.11-0.59); #Neutrophils 5.8 thou/uL (1.40-6.50); %Basophils 0.4 % (0.0-1.0); %Eosinophils 1.2 % (0.0-10.0); %Lymphocytes 20.1 % (21.0-51.0); %Monocytes 9.6 % (0.0-10.0); %Neutrophils 68.7 % (42.0-75.0); Hemoglobin 12.5 g/dL (12.0-16.0); Mean Corpuscular HGB CONC 33.7 g/dL (32.0-36.0); Mean Corpuscular Hemoglobin 33.8 pg (27.0-31.0); Mean Platelet Volume 6.7 fL (7.4-10.4); Platelet Count 249 thou/uL (130-400); RBC Distribution Width 11.3 % (11.5-14.5); White Blood Cell (WBC) Count 8.4 thou/uL (4.8-10.8)
[2020-12-14 09:04] LABS: ALT (SGPT) 26 U/L (8-55); AST (SGOT) 29 U/L (5-34); Albumin 3.5 g/dL (3.4-4.8); Alkaline Phosphatase 69 U/L (40-110); Anion Gap 18 mmol/L (10-20); BUN (Urea Nitrogen) 17 mg/dL (9.8-20.1); Bilirubin, Total 0.8 mg/dL (0.2-1.2); Calc. Creatinine Clearance 0 mL/min (70-130); Calcium 8.3 mg/dL (7.8-10.44); Carbon Dioxide 11 mmol/L (23-31); Chloride 103 mmol/L (98-107); Globulin 2.7 g/dL (2.4-3.5); Glucose 106 mg/dL (83-110); Lipase 24 U/L (8-78); Potassium 3.2 mmol/L (3.5-5.1); Protein, Total 6.2 g/dL (5.8-8.1); Sodium 129 mmol/L (136-145)
[2020-12-14 09:06] LABS: Acetaminophen Less than 6.0 mcg/mL (10.0-30.0); Alcohol Less than 10 mg/dL (Less than 10); Salicylate Less than 8.0 mg/dL (15.0-30.0)
[2020-12-14 09:28] LABS: Bacteria/HPF 4+ HPF (None Seen); Bilirubin Negative (Negative); Blood, Urine Negative (Negative); Clarity Turbid (Clear); Glucose, Urine (Dipstick) Normal (Negative); Ketone, Urine Negative (Negative); Leukocyte 75 Leu/uL (Negative); Nitrite Negative (Negative); Protein, Urine (Dipstick) 20 mg/dL (Neg-Trace); RBC/HPF 0-3 HPF (0-3); Squamous Epithelial None Seen HPF (0-3); Urobilinogen Normal mg/dL (Less than 2); WBC/HPF 0-3 HPF (0-3); pH, Urine 5.5 (5.0-9.0)
[2020-12-14] MEDS ORDERED: cefTRIAXone\\ROCEPHIN 2 GM VIAL ONE (10:02)
[2020-12-14] MEDS ORDERED: Guaifenesin DM 100-10/5 ML UDCUP PO PRN (11:16)
[2020-12-14] MEDS ORDERED: Zolpidem Tartrate 5 MG TAB PO PRN (11:16)
[2020-12-14] MEDS ORDERED: Loperamide HCl 2 MG CAP PO PRN (11:16)
[2020-12-14] MEDS ORDERED: Calcium Carbonate 500 MG ChewTAB PO PRN (11:16)
[2020-12-14] MEDS ORDERED: Ondansetron ODT 4 MG TAB PO PRN (11:16)
[2020-12-14] MEDS ORDERED: HYDROcodone/Acetaminophen 5/325 mg Tablet PO PRN (11:16)
[2020-12-14] MEDS ORDERED: Acetaminophen 325 MG TAB PO PRN (11:16)
[2020-12-14] MEDS ORDERED: Ondansetron PF 4 MG/2 ML Vial IVP PRN (11:16)
[2020-12-14] MEDS ORDERED: Diphenoxylate HCl/Atropine Tablet PO PRN (11:18)
[2020-12-14 12:26] LABS: Lactic Acid 1.7 mmol/L (0.5-2.2)
[2020-12-14] MEDS ORDERED: Metoprolol Tartrate 5 MG/5 ML VIAL ONE (12:54)
[2020-12-14] MEDS: Metoprolol Tartrate 5 MG/5 ML VIAL IVP PRN (12:56)
[2020-12-14] MEDS: 1/2 NS w/KCL 20 mEq 1,000 ML IV SCH ×2 (17:43→21:30)
[2020-12-14] MEDS ORDERED: Digoxin 0.5 MG/2 ML AMP SLOW IVP SCH (18:15)
[2020-12-14] MEDS ORDERED: Digoxin 0.5 MG/2 ML AMP ONE (18:25)
[2020-12-14] MEDS ORDERED: Potassium Chloride 10 MEQ in Premix Bag 1 BAG IVPB SCH (19:00)
[2020-12-14 20:31] VITALS: BMI 20.5
[2020-12-14] MEDS ORDERED: Cholecalciferol 1,000 UNITS (25 MCG) TAB PO SCH (21:00)
[2020-12-14] MEDS: Cholestyramine/Aspartame 4 gm Packet PO SCH (21:17)
[2020-12-14] MEDS: Heparin 5,000 UNITS/ML VIAL SC SCH (21:18)
[2020-12-14 23:41] LABS: SARS-CoV-2 PCR by NAA Not Detected (NotDetected)
[2020-12-15] MEDS: Metoprolol Tartrate 5 MG/5 ML VIAL IVP PRN (00:01)
[2020-12-15] MEDS ORDERED: Potassium Chloride 20 MEQ in Premix Bag 1 BAG IVPB SCH (00:30)
[2020-12-15] MEDS ORDERED: Magnesium 2 GM/50 ML 2 GM in Premix Bag 1 BAG IVPB SCH ×2 (00:45→06:00)
[2020-12-15] MEDS ORDERED: Sodium Chloride 0.9% 500 ML IVPB SCH (01:15)
[2020-12-15 05:03] LABS: #Eosinphils 0.1 thou/uL (0.0-0.7); #Lymphocytes 1.8 thou/uL (1.20-3.40); #Monocytes 0.5 thou/uL (0.11-0.59); #Neutrophils 3.4 thou/uL (1.40-6.50); %Basophils 0.6 % (0.0-1.0); %Eosinophils 2.5 % (0.0-10.0); %Lymphocytes 30.5 % (21.0-51.0); %Monocytes 9.1 % (0.0-10.0); %Neutrophils 57.4 % (42.0-75.0); Hemoglobin 10.9 g/dL (12.0-16.0); Mean Corpuscular HGB CONC 33.8 g/dL (32.0-36.0); Mean Corpuscular Hemoglobin 33.8 pg (27.0-31.0); Mean Platelet Volume 6.7 fL (7.4-10.4); Platelet Count 201 thou/uL (130-400); RBC Distribution Width 11.3 % (11.5-14.5); Red Blood Cell (RBC) Count 3.22 mill/uL (4.20-5.40); White Blood Cell (WBC) Count 5.9 thou/uL (4.8-10.8)
[2020-12-15] MEDS: 1/2 NS w/KCL 20 mEq 1,000 ML IV SCH (05:14)
[2020-12-15 05:22] LABS: ALT (SGPT) 21 U/L (8-55); AST (SGOT) 23 U/L (5-34); Albumin 3.4 g/dL (3.4-4.8); Alkaline Phosphatase 61 U/L (40-110); Anion Gap 13 mmol/L (10-20); BUN (Urea Nitrogen) 14 mg/dL (9.8-20.1); Bilirubin, Total 0.2 mg/dL (0.2-1.2); Calc. Creatinine Clearance 29 mL/min (70-130); Calcium 8.2 mg/dL (7.8-10.44); Carbon Dioxide 14 mmol/L (23-31); Chloride 110 mmol/L (98-107); Globulin 2.2 g/dL (2.4-3.5); Glucose 91 mg/dL (83-110); Magnesium 1.8 mg/dL (1.6-2.6); Phosphorus 2.6 mg/dL (2.3-4.7); Potassium 3.5 mmol/L (3.5-5.1); Protein, Total 5.6 g/dL (5.8-8.1); Sodium 133 mmol/L (136-145)
[2020-12-15] MEDS ORDERED: Potassium Chloride 10 MEQ in Premix Bag 1 BAG IVPB SCH (08:15)
[2020-12-15] MEDS: Famotidine 20 MG TAB PO SCH (09:52)
[2020-12-15] MEDS: Saccharomyces boulardii 250 MG CAP PO SCH (09:52)
[2020-12-15] MEDS: Magnesium Oxide 400 MG TAB PO SCH ×2 (09:52→19:53)
[2020-12-15] MEDS: Cyanocobalamin (Vitamin B-12) 1,000 MCG TAB PO SCH (09:52)
[2020-12-15] MEDS: Folic Acid 1 MG TAB PO SCH (09:52)
[2020-12-15] MEDS: Aspirin Chewable 81 MG TAB PO SCH (09:52)
[2020-12-15] MEDS: Heparin 5,000 UNITS/ML VIAL SC SCH (09:53)
[2020-12-15] MEDS: Famotidine/PF 20 mg/2ml Vial SLOW IVP SCH (09:53)
[2020-12-15] MEDS: cefTRIAXone\\ROCEPHIN 1 GM in Sodium Chloride 0.9% 100 ML IVPB SCH (09:59)
[2020-12-15] MEDS ORDERED: Digoxin 0.5 MG/2 ML AMP SLOW IVP SCH (10:45)
[2020-12-15] MEDS: Cholestyramine/Aspartame 4 gm Packet PO SCH ×2 (11:09→21:17)
[2020-12-15] MEDS: Potassium Chloride 20 MEQ TAB PO SCH (17:49)
[2020-12-15] MEDS ORDERED: Enoxaparin Sodium 60 MG/0.6 ML SYRINGE SC SCH ×2 (19:15→21:00)
[2020-12-15] MEDS: Metoprolol Tartrate 25 MG TAB PO SCH (19:54)
[2020-12-15] MEDS ORDERED: Cholecalciferol 1,000 UNITS (25 MCG) TAB PO SCH (21:00)
[2020-12-16 04:38] LABS: #Eosinphils 0.2 thou/uL (0.0-0.7); #Lymphocytes 1.4 thou/uL (1.20-3.40); #Monocytes 0.4 thou/uL (0.11-0.59); #Neutrophils 2.7 thou/uL (1.40-6.50); %Basophils 0.9 % (0.0-1.0); %Eosinophils 3.2 % (0.0-10.0); %Lymphocytes 29.8 % (21.0-51.0); %Monocytes 8.5 % (0.0-10.0); %Neutrophils 57.7 % (42.0-75.0); Hemoglobin 9.9 g/dL (12.0-16.0); Mean Corpuscular HGB CONC 33.7 g/dL (32.0-36.0); Mean Corpuscular Hemoglobin 33.9 pg (27.0-31.0); Platelet Count 172 thou/uL (130-400); RBC Distribution Width 11.2 % (11.5-14.5); Red Blood Cell (RBC) Count 2.92 mill/uL (4.20-5.40); White Blood Cell (WBC) Count 4.7 thou/uL (4.8-10.8)
[2020-12-16 05:00] LABS: ALT (SGPT) 21 U/L (8-55); AST (SGOT) 23 U/L (5-34); Albumin 3.4 g/dL (3.4-4.8); Alkaline Phosphatase 55 U/L (40-110); Anion Gap 12 mmol/L (10-20); BUN (Urea Nitrogen) 9 mg/dL (9.8-20.1); Bilirubin, Total 0.3 mg/dL (0.2-1.2); Calc. Creatinine Clearance 46 mL/min (70-130); Carbon Dioxide 15 mmol/L (23-31); Chloride 111 mmol/L (98-107); Globulin 2.2 g/dL (2.4-3.5); Glucose 77 mg/dL (83-110); Phosphorus 2.1 mg/dL (2.3-4.7); Potassium 4.9 mmol/L (3.5-5.1); Protein, Total 5.6 g/dL (5.8-8.1); Sodium 133 mmol/L (136-145)
[2020-12-16] MEDS: 1/2 NS w/KCL 20 mEq 1,000 ML IV SCH (07:11)
[2020-12-16] MEDS ORDERED: PHOS-NAK 1 PKT PACK PO SCH (07:30)
[2020-12-16 08:07] VITALS: BP 188/96; TEMP 97.7
[2020-12-16] MEDS: Potassium Chloride 20 MEQ TAB PO SCH (08:56)
[2020-12-16] MEDS: Aspirin Chewable 81 MG TAB PO SCH (08:56)
[2020-12-16] MEDS: Saccharomyces boulardii 250 MG CAP PO SCH (08:56)
[2020-12-16] MEDS: Famotidine 20 MG TAB PO SCH (08:56)
[2020-12-16] MEDS: Cyanocobalamin (Vitamin B-12) 1,000 MCG TAB PO SCH (08:56)
[2020-12-16] MEDS: Folic Acid 1 MG TAB PO SCH (08:56)
[2020-12-16] MEDS: Magnesium Oxide 400 MG TAB PO SCH (08:56)
[2020-12-16] MEDS: Metoprolol Tartrate 25 MG TAB PO SCH (08:56)
[2020-12-16] MEDS: Famotidine/PF 20 mg/2ml Vial SLOW IVP SCH (08:57)
[2020-12-16] MEDS ORDERED: Metoprolol Tartrate 25 MG TAB PO SCH ×2 (09:45→21:00)
[2020-12-16] MEDS: cefTRIAXone\\ROCEPHIN 1 GM in Sodium Chloride 0.9% 100 ML IVPB SCH (10:18)
[2020-12-16] MEDS: Cholestyramine/Aspartame 4 gm Packet PO SCH (10:19)
== END 2020-12-16 11:05 | disposition home or self-care (01) | DRG 872 ==
LOC: ERS 07:43 → ERHOLD 10:16 → 2NO 20:22
PROVIDERS: ADMIT Internal Medicine; ATTEND Internal Medicine
PROC: 8E0ZXY6 Isolation (ICD-10-PCS; principal; 2020-12-14)
DX: A41.9 Sepsis, unspecified organism (principal); N17.9 Acute kidney failure, unspecified; E87.1 Hypo-osmolality and hyponatremia; N39.0 Urinary tract infection, site not specified; Z20.822 Contact with and (suspected) exposure to COVID-19; K52.9 Noninfective gastroenteritis and colitis, unspecified; E86.0 Dehydration; I48.91 Unspecified atrial fibrillation; F41.9 Anxiety disorder, unspecified; E78.5 Hyperlipidemia, unspecified; I10 Essential (primary) hypertension; E87.6 Hypokalemia; I95.9 Hypotension, unspecified; F10.10 Alcohol abuse, uncomplicated; D75.89 Other specified diseases of blood and blood-forming organs; M19.90 Unspecified osteoarthritis, unspecified site; D53.9 Nutritional anemia, unspecified; Z91.14 Patient's other noncompliance with medication regimen; Z79.82 Long term (current) use of aspirin; Z79.899 Other long term (current) drug therapy; Z90.710 Acquired absence of both cervix and uterus; Z90.722 Acquired absence of ovaries, bilateral; R65.20 Severe sepsis without septic shock
CPT/HCPCS: 36415; 51701; 71045; 80053; 80307; 81003; 81015; 83605; 83690; 83735; 83880; 84100; 84443; 84484; 85025; 87040; 87077; 87086; 87186; 93005; 93306; 96361; 96365; 96375; 96376; J0696; J1160; J1644; J1650; J2060; J2405; J3475; J3480; J3490; J7030; U0003; U0005

== ENCOUNTER 2021-01-21 08:43 | Outpatient (CLI) | payer MEDICARE | END 2021-01-21 08:44 | disposition home or self-care (01) | LOC: BICMAMMO 08:43 | PROVIDERS: ATTEND Family Medicine | DX: Z12.31 Encounter for screening mammogram for malignant neoplasm of breast (principal); Z91.89 Other specified personal risk factors, not elsewhere classified | CPT/HCPCS: 77063; 77067 ==

== ENCOUNTER 2021-03-05 09:27 | Outpatient (CLI) | payer MEDICARE | END 2021-03-05 09:28 | disposition home or self-care (01) | LOC: BICMAMMO 09:27 | PROVIDERS: ATTEND Family Medicine | DX: R92.8 Other abnormal and inconclusive findings on diagnostic imaging of breast (principal); N63.20 Unspecified lump in the left breast, unspecified quadrant | CPT/HCPCS: 76642; 77065; G0279 ==

== ENCOUNTER → 2021-03-07 | Day surgery (SDC) | payer MEDICARE | LOC: BICULT 09:05 | PROVIDERS: ATTEND Family Medicine | DX: R92.8 Other abnormal and inconclusive findings on diagnostic imaging of breast (principal) ==

== ENCOUNTER 2021-10-21 09:21 | Outpatient (CLI) | payer MEDICARE | END 2021-10-21 09:22 | disposition home or self-care (01) | LOC: BICMAMMO 09:21 | PROVIDERS: ATTEND Family Medicine | DX: R92.8 Other abnormal and inconclusive findings on diagnostic imaging of breast (principal); N63.23 Unspecified lump in the left breast, lower outer quadrant | CPT/HCPCS: 76642; 77066; G0279 ==

== ENCOUNTER → 2021-10-31 | Day surgery (SDC) | payer MEDICARE | END | disposition home or self-care (01) | LOC: MAMMO 06:57 | PROVIDERS: ATTEND Family Medicine | PROC: 0H9U3ZX Drainage of Left Breast, Percutaneous Approach, Diagnostic (ICD-10-PCS; principal; 2021-10-31) | DX: N60.12 Diffuse cystic mastopathy of left breast (principal) | CPT/HCPCS: 19283; 76098; 88305 ==

== ENCOUNTER 2023-02-04 11:52 | Emergency (ER) | payer MEDICARE ==
[2023-02-04] MEDS ORDERED: Iopamidol-370 76% 500 ML MDV (1 ML CHARGE) ONE (12:25)
[2023-02-04 12:31] LABS: Hematocrit 43.7 % (36.0-47.0); Hemoglobin 14.8 g/dL (12.0-16.0); Mean Corpuscular HGB CONC 33.9 g/dL (32.0-36.0); Mean Corpuscular Hemoglobin 31.1 pg (27.0-31.0); Mean Corpuscular Volume 91.8 fl (78.0-98.0); Mean Platelet Volume 11.1 fL (7.4-10.4); Platelet Count 195 10x3/uL (130-400); RBC Distribution Width 15.6 % (11.5-14.5); Red Blood Cell (RBC) Count 4.76 mill/uL (4.20-5.40); White Blood Cell (WBC) Count 7.2 10x3/uL (4.8-10.8)
[2023-02-04 12:32] LABS: Delete Auto Diff?? YES; Manual Diff?? YES
[2023-02-04 12:43] LABS: INR-International Normal Ratio 1.3; Prothrombin Time 16.9 sec (12.0-14.7)
[2023-02-04 12:44] LABS: PTT 59.1 sec (22.9-36.1)
[2023-02-04 12:53] LABS: Anisocytosis SLIGHT = 6-15 cells HPF (0-5); Band 1 % (5-11); Burr Cells SLIGHT = 2-5 cells HPF (0-1); CellaVision Operator ID LAB.MJL; Eosinophils 1 % (0-10); Lymphocytes 20 % (21-51); Monocytes 13 % (0-10); Neutrophil 63 % (42-75); Platelet Adequacy Comment Platelets Normal; Polychromasia SLIGHT = 2-3 cells HPF (0-2); Reactive Lymphocytes 2 % (0-10); Total Cell Count 100
[2023-02-04 12:56] LABS: Troponin I 0.055 ng/mL (< 0.028)
[2023-02-04 12:57] LABS: ALT (SGPT) 21 U/L (8-55); AST (SGOT) 35 U/L (5-34); Albumin 4.3 g/dL (3.4-4.8); Alkaline Phosphatase 78 U/L (40-110); Anion Gap 19 mmol/L (10-20); BUN (Urea Nitrogen) 44 mg/dL (9.8-20.1); Bilirubin, Total 2.1 mg/dL (0.2-1.2); Calc. Creatinine Clearance 0 mL/min (70-130); Calcium 10.5 mg/dL (7.8-10.44); Carbon Dioxide 26 mmol/L (23-31); Chloride 94 mmol/L (98-107); Estimated GFR 42; Glucose 118 mg/dL (83-110); Lipase 24 U/L (8-78); Magnesium 1.6 mg/dL (1.6-2.6); Potassium 3.5 mmol/L (3.5-5.1); Protein, Total 7.3 g/dL (5.8-8.1); Sodium 135 mmol/L (136-145)
[2023-02-04] MEDS ORDERED: Metoprolol Tartrate 5 MG/5 ML VIAL ONE (13:02)
[2023-02-04] MEDS ORDERED: Cefepime 2 GM VIAL ONE (13:08)
[2023-02-04] MEDS ORDERED: diphenhydrAMINE 50 MG/ML VIAL ONE (13:08)
[2023-02-04] MEDS ORDERED: dilTIAZem 125 MG/25 ML SDV ONE (14:21)
[2023-02-04] MEDS ORDERED: dilTIAZem 25 MG/5 ML VIAL ONE (14:22)
[2023-02-04 14:33] LABS: SARS-CoV-2 NAA Rapid Test Not Detected (NotDetected)
[2023-02-04] MEDS ORDERED: Aspirin Chewable 81 MG TAB ONE (15:30)
[2023-02-04] MEDS ORDERED: Vancomycin 1 GM/200 ML (FROZEN) BAG ONE (15:30)
[2023-02-04 15:50] LABS: Bacteria/HPF 1+ HPF (None Seen); Bilirubin Negative (Negative); Blood, Urine Negative (Negative); CAUTI Indications for Culture Pelvic or flank pain; Clarity Turbid (Clear); Glucose, Urine (Dipstick) Normal (Negative); Ketone, Urine Negative (Negative); Leukocyte 500 Leu/uL (Negative); Nitrite Negative (Negative); Protein, Urine (Dipstick) 600 mg/dL (Neg-Trace); RBC/HPF 0-3 HPF (0-3); Specific Gravity, Urine 1.039 (1.002-1.036); Squamous Epithelial 0-3 HPF (0-3); Triple Phosphate Crystal 1+ HPF (None Seen); Urobilinogen Normal mg/dL (Less than 2); WBC/HPF 21-50 HPF (0-3); pH, Urine 8.5 (5.0-9.0)
[2023-02-04 15:51] LABS: Urine Culture Reflex Yes Yes
== END 2023-02-04 16:23 | disposition short-term general hospital (02) ==
LOC: ERS 11:52
DX: I11.0 Hypertensive heart disease with heart failure (principal); I50.9 Heart failure, unspecified; I48.91 Unspecified atrial fibrillation; E78.5 Hyperlipidemia, unspecified
CPT/HCPCS: 0240U; 71045; 74177; 81001; 83605; 83690; 83735; 83880; 84484; 85610; 85730; 87040; 87086; 93005; 36415; 80053; 84443; 85025; 96361; 96374; 96375; J0692; J1200; J3370-JW; Q9967